=== PATIENT | male | born 1960 | race Caucasian/White ===

== ENCOUNTER 2018-12-26 09:16 | Outpatient (CLI) | payer BC | END 2018-12-26 09:17 | disposition home or self-care (01) | LOC: C.CARD 09:16 | DX: R06.02 Shortness of breath (principal) ==

== ENCOUNTER 2019-01-17 16:44 | Outpatient (CLI) | payer BC | END 2019-01-17 16:45 | disposition home or self-care (01) | LOC: C.RADIC 16:44 | DX: M25.562 Pain in left knee (principal) ==